=== PATIENT | male | born 1965 | race Caucasian/White ===

== ENCOUNTER 2016-09-24 10:01 | Emergency (ER) | payer OTHER ==
[2016-09-24 10:09] VITALS: BP 150/90; PULSE 77; TEMP 98; BMI 23.6
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
[2016-09-24] MEDS ORDERED: IBUPROFEN 600 MG TABLET (FP) PO ONE ×2 (10:43→10:46)
== END 2016-09-24 12:07 | disposition home or self-care (01) ==
LOC: JERFT 10:01
DX: S16.1XXA Strain of muscle, fascia and tendon at neck level, initial encounter (principal); V29.88XA Motorcycle rider (driver) (passenger) injured in other specified transport accidents, initial encounter; Y92.414 Local residential or business street as the place of occurrence of the external cause; Y93.89 Activity, other specified; Y99.8 Other external cause status
CPT/HCPCS: 72050-TC; 72125-TC; 73610-TC-LT; 99281-25